=== PATIENT | female | born 1990 | race Caucasian/White ===

== ENCOUNTER → 2019-08-24 09:47 | Outpatient (CLI) | payer OTHER, SELFPAY ==
--- NOTE | ~2019-08-24 | MR_ITS ---
EXAMINATION: MR knee RT wo con DATE: 08/24/2019 10:37 INDICATION: Right knee pain. TECHNIQUE: Magnetic resonance imaging (MRI) of the right knee was performed without intravenous contr ast. Sequences included axial PD-weighted FS FSE, coronal PD-weighted FSE and PD-weighted FS FSE, sag ittal PD-weighted FSE, and sagittal T2-weighted FS FSE. COMPARISON: Right knee radiographs 08/16/2019, MRI 07/30/2018 FINDINGS: Medial compartment: Medial meniscus is normal. Tibial cartilage is normal. There is deep partial thickness cartilage loss of femoral condyle involving the central articular surface. Lateral compartment: Lateral meniscus is normal. There is cartilage surface irregularity of femoral condyle and tibial con dyle. There is shallow partial-thickness cartilage loss of femoral condyle involving the central sherin cular surface. Marginal osteophytes are noted. Patellofemoral compartment: There is full-thickness cartilage loss of patellar lateral facet at its lateral aspect with mild subc hondral edema-like marrow signal intensity. There is deep partial thickness cartilage loss of patella r median ridge and medial facet with mild subchondral edema-like marrow signal intensity. There is de ep partial thickness cartilage loss of lateral trochlea and shallow partial-thickness cartilage loss of medial trochlea. Marginal osteophytes are noted. Ligaments and tendons: The anterior and posterior cruciate ligaments are normal. Medial collateral ligament and the lateral collateral ligament complex are normal. There is mild patellar tendinopathy. Fluid: There is a small knee joint effusion. There is trace fluid in a Moody's cyst. IMPRESSION: 1. 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 Moderate chondrosis of me dial compartment and mild chondrosis of lateral compartment with interval improvement. 2. Small knee joint effusion. Reviewed, dictated and finalized at location A. FINISHER IMPRESSION: 1. 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 Mod erate chondrosis of medial compartment and mild chondrosis of lateral compartme nt with interval improvement. 2. Small knee joint effusion.
== END ==
DX: M23.51 Chronic instability of knee, right knee (principal); G89.29 Other chronic pain; M25.461 Effusion, right knee
CPT/HCPCS: 73721